=== PATIENT | female | born 1965 | race Caucasian/White ===

== ENCOUNTER 2017-08-28 18:04 | Emergency (ER) | payer OTHER ==
[~2017-08-28] VITALS: Ht 167.6 cm; Wt 65.0 kg
[~2017-08-28 18:04] MED LIST: BUPR-197 PO; SYNT25TA PO
[2017-08-28 18:06] VITALS: BP 130/79; PULSE 87; RESP 18; TEMP 98.8; O2SAT 96
[2017-08-28] MEDS ORDERED: SODIUM CHLOR 0.9% 1000 ML INJ 1,000 ML IV ONE (19:06)
[2017-08-28] MEDS ORDERED: PROCHLORPERAZINE INJ 10 MG/2 ML VIAL IVP ONE (19:15)
[2017-08-28] MEDS ORDERED: SODIUM CHLORIDE 0.9% FLUSH 10 ML FLUSH IVF PRN (19:15)
[2017-08-28] MEDS ORDERED: diphenhydrAMINE HCL 50 MG/ML VIAL IVP ONE (19:15)
[2017-08-28] MEDS ORDERED: KETOROLAC TROMETHAMINE 30 MG/ML (IVP) VIAL IVP ONE (19:15)
[2017-08-28 19:46] VITALS: O2SAT 100
--- NOTE | 2017-08-28 20:40 | PD ---
HPI Chief Complaint: Headache Time Seen by Provider: 18:16 Travel History International Travel<30 days: No Contact w/Intl Traveler<30days: No Traveled to known affect area: No History of Present Illness HPI 51-year-old female presents to the ED for evaluation 3 day history of left- sided headache. Gradual onset. Accompanied by photophobia, sinus pressure, nausea. Patient also complains of pain in the neck and upper back, worsened by range of motion. Patient denies vision changes, dizziness, fevers, chills, abdominal pain, vomiting, neurologic deficits. She states that she was evaluated and is currently taking a Z-Sergio with no improvement of symptoms. PFSH Past Medical History Depression: Yes Seizures: No ?: Not Past Surgical History Gynecologic Surgery: Yes (LEFT OVARY REMOVED) Other Surgery: Yes (BREAST AUGMENTATION) Social History Alcohol Use: Yes (COUPLE TIMES A WEEK ) Tobacco Use: Yes (1/2 PACK ) Substance Use: No Allergies-Medications (Allergen,Severity, Reaction): Coded Allergies: Sulfa (Sulfonamide Antibiotics) (Unverified Allergy, Severe, Hives, ) Reported Meds & Prescriptions Reported Meds & Active Scripts Active Reported Synthroid (Levothyroxine Sodium) 25 Mcg Tab 25 Mcg PO DAILY Wellbutrin (Bupropion HCl) 100 Mg Tab 300 Mg PO DAILY Review of Systems Except as stated in HPI: all other systems reviewed are Neg Physical Exam Narrative GENERAL: Well-nourished, well-developed white female in no acute distress. SKIN: Focused skin assessment warm/dry. HEAD: Normocephalic. EYES: No scleral icterus. No injection or drainage. PERRLA. EOMI. ENT: Pearly vázquez tympanic membranes bilaterally. Oropharynx without erythema, edema or exudates. Mild tenderness to palpation of the facial sinuses. NECK: Supple, trachea midline. No JVD or lymphadenopathy. No midline tenderness to palpation. No nuchal rigidity. Negative Kernig's and Brudzinski' s signs. CARDIOVASCULAR: Regular rate and rhythm without murmurs, gallops, or rubs. RESPIRATORY: Breath sounds clear and equal bilaterally. No accessory muscle use. GASTROINTESTINAL: Abdomen soft, non-tender, nondistended. Bowel sounds. MUSCULOSKELETAL: No cyanosis, or edema. NEUROLOGICAL: Awake and alert. Cranial nerves II through XII intact. Motor and sensory grossly within normal limits. Five out of 5 muscle strength in all muscle groups. Normal speech. BACK: Nontender without obvious deformity. No CVA tenderness. Data Data Last Documented VS Vital Signs Date Time Temp Pulse Resp B/P (MAP) Pulse Ox O2 Delivery O2 Flow Rate FiO2 08/28/17 20:45 08/28/17 20:29 100 Room Air 08/28/17 18:23 16 08/28/17 18:06 98.8 87 Orders Orders Ecg Monitoring (08/28/17 19:06) Iv Access Insert/Monitor (08/28/17 19:06) Oximetry (08/28/17 19:06) Sodium Chloride 0.9% Flush (Ns Flush) (08/28/17 19:15) Ketorolac Inj (Toradol Inj) (08/28/17 19:15) Prochlorperazine Inj (Compazine Inj) (08/28/17 19:15) Diphenhydramine Inj (Benadryl Inj) (08/28/17 19:15) Sodium Chlor 0.9% 1000 Ml Inj (Ns 1000 M (08/28/17 19:06) Influenzae A/B Antigen (08/28/17 19:06) Ed Discharge Order (08/28/17 20:42) MDM Medical Decision Making Medical Screen Exam Complete: Yes Emergency Medical Condition: Yes Differential Diagnosis Cephalgia versus sinusitis versus histamine cephalgia versus musculoskeletal pain versus less likely meningitis versus other Narrative Course 51-year-old female presents to the ED for evaluation of 3 day history of left- sided headache with accompanying photophobia, sinus pressure, nausea. Also complains of some neck and back pain without stiffness, limitations to range of motion, fevers. Patient afebrile on presentation. No nuchal rigidity or focal neuro deficits on exam. IV was established. Patient was administered Toradol, Benadryl, Compazine, 1 L normal saline. On recheck she reports improvement of her symptoms and is requesting to be discharged. He is instructed to continue with antibiotics as previously prescribed, return for worsening symptoms. She is stable and discharged home. Diagnosis Primary Impression: Cephalgia Qualified Codes: R51 - Headache Referrals: Primary Care Physician Patient Instructions: Acute Headache (ED), General Instructions Additional Instructions: Rest, hydrate. Avoid stressors as you're able. Continue at home medications as prescribed. Follow-up with your primary care provider. Return to the ED for worsening symptoms or any urgent or emergent medical condition. Disposition: 01 DISCHARGE HOME Condition: Stable Ele Borja Aug 28, 2017 20:40
== END 2017-08-28 21:02 | disposition home or self-care (01) ==
LOC: NEPC 18:04
DX: R51 Headache (principal); H53.149 Visual discomfort, unspecified; M54.2 Cervicalgia; F32.9 Major depressive disorder, single episode, unspecified
CPT/HCPCS: 87804; 96361; 96374; 96375; 99284; J0780; J1200; J1885; J7030